=== PATIENT | male | born 1990 | race Caucasian/White ===

== ENCOUNTER 2019-11-18 01:17 | Emergency (ER) | payer BC, OTHER ==
[2019-11-18] MEDS ORDERED: CEPHALEXIN 500 MG CAPSULE PO ONE (01:53)
[2019-11-18] MEDS ORDERED: DIPH/PERTUSS(ACELL)/TETANUS VAC/PF 0.5 ML SYR (>=10YO) IM ONE (01:53)
--- NOTE | 2019-11-18 02:04 | ER Document Report ---
ED General - General Chief Complaint: Finger Injury Stated Complaint: FINGER LACERATION Time Seen by Provider: 11/18/19 01:37 Notes: 29-year-old male presents emergency department after having cut his right fifth finger on a mandolin while slicing cucumbers just prior to arrival. Patient states it was a new blade. Patient complains of moderate pain to his finger when changing the dressing otherwise only has mild pain. Denies any difficulty with movement. Last tetanus shot is uncertain. TRAVEL OUTSIDE OF THE [place] IN LAST 30 DAYS: No Past Medical History - General Information source: Patient - Social History Smoking Status: Never Smoker Frequency of alcohol use: Rare Drug Abuse: None Family History: Reviewed & Not Pertinent Patient has suicidal ideation: No Patient has homicidal ideation: No Past Surgical History: Reports: Hx Oral Surgery Review of Systems - Review of Systems Constitutional: No symptoms reported Musculoskeletal: See HPI Skin: See HPI Neurological/Psychological: No symptoms reported Physical Exam - Vital signs Vitals: Temp Pulse Resp BP Pulse Ox 98.2 F 108 H 16 149/86 H 99 11/18/19 01:22 11/18/19 01:22 11/18/19 01:22 11/18/19 01:22 11/18/19 01:22 Interpretation: Hypertensive, Tachycardic - Notes Notes: GENERAL: Alert, interacts well. No acute distress. HEAD: Normocephalic, atraumatic ENT: Oral mucosa moist, tongue midline. EYES: Pupils are equal and round. NECK: Full range of motion, supple, trachea midline. LUNGS: No respiratory distress. EXTREMITIES: Ulnar aspect of the distal portion of the right fifth digit reveals a oval-shaped wound that is approximately 9 mm in length consistent with an avulsion of the skin and subcutaneous tissue from the mandolin. No bone exposed. No nailbed involvement. It is oozing blood. Tender to palpation. Full range of motion, no difficulty with flexion or extension. No cyanosis. Course - Re-evaluation Re-evalutation: 11/18/19 02:07 Nothing amenable to approximation, Xeroform gauze and regular gauze and tape will be applied. Patient will be started on Keflex to prevent infection. Patient will be discharged to home - Vital Signs Vital signs: Temp Pulse Resp BP Pulse Ox 98.2 F 108 H 16 149/86 H 99 11/18/19 01:22 11/18/19 01:22 11/18/19 01:22 11/18/19 01:22 11/18/19 01:22 Discharge - Discharge Clinical Impression: Skin avulsion right finger Avulsion of finger Qualifiers: Encounter type: initial encounter Qualified Code(s): S61.209A - Unspecified open wound of unspecified finger without damage to nail, initial encounter Condition: Stable Disposition: HOME, SELF-CARE Additional Instructions: Avulsion Injury You have an avulsion injury -- a loss of skin which can't be helped by suturing. This will not require grafting. Smaller defects or shallow avulsions usually heal well with dressings. Keep the dressing clean and dry. If the bandage becomes wet, remove it, blot the area dry, and apply a fresh dressing. Leave the dressing intact for the next 48 hours and then change it every 24 hours after that. Complete healing may take anywhere from 10 days to two months. The healing time depends on the size and depth of the avulsion and on the amount of crushing of underlying tissues. Re-examination by the physician is often necessary. If any signs of infection occur (swelling, redness, increasing tenderness, red streaks, profuse purulent drainage from the avulsion, tender lumps in the armpit or groin above the avulsion, or fever), see your doctor immediately. Please take the Keflex (an antibiotic) as directed until it is gone. Prescriptions: Cephalexin Monohydrate [Keflex 500 mg Capsule] 500 mg PO Q6H 5 Days capsule
[2019-11-18] MEDS ORDERED: HYDROCODONE/ACETAMINOPHEN 5-325 MG TABLET PO ONE (02:12)
[2019-11-18 02:43] VITALS: BP 125/73
== END 2019-11-18 02:42 | disposition home or self-care (01) ==
LOC: ER 01:17
DX: S61.216A Laceration without foreign body of right little finger without damage to nail, initial encounter (principal); M79.644 Pain in right finger(s); W26.0XXA Contact with knife, initial encounter
CPT/HCPCS: 90471; 90715; 99282